=== PATIENT | female | born 1960 ===

== ENCOUNTER 2025-08-10 11:37 | Emergency (ER) | payer OTHER ==
[~2025-08-10] VITALS: Ht 154.9 cm; Wt 74.4 kg
[2025-08-10] MEDS ORDERED: COZAAR100 MG (11:40)
[2025-08-10] MEDS ORDERED: GABAPENTIN800 M1 (11:41)
[2025-08-10] MEDS ORDERED: LUNESTA3 MG (11:42)
[2025-08-10] MEDS ORDERED: SINGULAIR10 MG (11:42)
[2025-08-10] MEDS ORDERED: ALBUTEROL SULFATE 3 ML/2.5 MG AMPUL.NEB IH ONE (11:57)
[2025-08-10] MEDS ORDERED: IPRATROPIUM BROMIDE 0.5 MG/2.5 ML AMPUL.NEB IH ONE (11:57)
== END 2025-08-10 11:49 | disposition left against medical advice (07) ==
LOC: ER 11:38
DX: Z53.21 Procedure and treatment not carried out due to patient leaving prior to being seen by health care provider (principal)